=== PATIENT | female | born 1985 | race Hispanic/Latino ===

== ENCOUNTER 2023-07-31 12:21 | Emergency (ER) | payer OTHER, BC ==
[2023-07-31] MEDS ORDERED: Ibuprofen 200 MG TAB ONE (12:49)
== END 2023-07-31 13:48 | disposition home or self-care (01) ==
LOC: ERS 12:21
DX: M25.511 Pain in right shoulder (principal); V43.52XA Car driver injured in collision with other type car in traffic accident, initial encounter
CPT/HCPCS: 99283